=== PATIENT | female | born 1975 | race Two or more races ===

== ENCOUNTER 2022-05-01 09:55 | Emergency (ER) | payer BC, SELFPAY ==
--- NOTE | ~2022-05-01 | CT_ITS ---
EXAMINATION: CT ABDOMEN AND PELVIS WITH CONTRAST CLINICAL INFORMATION: Urinary retention. Question external compression. COMPARISON: None TECHNIQUE: Multidetector volumetric images were obtained from the superior aspect of the liver through the pubic symphysis following administration 85 mL of Omnipaque 350 intravenous contrast. Sagittal and coronal reformatted images were obtained on the technologist's workstation. Oral contrast: No This CT examination was performed using dose optimization techniques as appropriate, variously including the following: *Automated exposure control *Adjustment of mA and/or kV according to patient size (this includes techniques or standardized protocols for targeted exams where dose is matched to indication/reason for exam; i.e. extremities or head) *Use of iterative reconstruction technique DLP: 792 mGy-cm FINDINGS: LUNG BASES: There is minimal bibasilar compressive atelectasis or scarring. Heart size is normal. LIVER, GALLBLADDER, AND BILIARY TREE: The liver is normal in size, shape, and attenuation. There are several hypodense liver lesions largest right hepatic lobe is a cyst measuring 4.1 cm axial image 28/3 and a left hepatic cyst measuring 7.6 cm. no intrahepatic ductal dilatation seen. The gallbladder is moderately distended with no evidence of radiopaque gallstones, gallbladder wall thickening, or obvious pericholecystic inflammatory changes. PANCREAS: Unremarkable. SPLEEN: Unremarkable. ADRENAL GLANDS: Unremarkable. KIDNEYS AND URETERS: The kidneys are normal in size, shape, and attenuation. No radiopaque renal calculi or caliectasis seen. There is minimal left hydronephrosis slightly segment distal obstruction. No right-sided hydronephrosis seen. No perinephric stranding. BLADDER: The bladder is decompressed with a Warren's catheter. GASTROINTESTINAL TRACT: There is moderate scattered stool and gas seen throughout the colon without significant distention. The small bowel loops are normal caliber. ABDOMINAL WALL: A small umbilical hernia containing fat is noted. LYMPH NODES: Normal. VASCULAR: Unremarkable. PELVIC VISCERA: There is significantly enlarged lobulated uterus likely fibroid disease. Hypodense-appearing lesion in the left fundal uterus measuring 5.8 x 5.6 x 4.72 cm likely degenerated fibroid. There is a more solid lesion in the right body of uterus measuring 8.3 x 5.8 x 6.5 cm. The endometrial canal is compressed and deviated to the left from fibroid disease. There is minimal free fluid. No abnormal pelvic or inguinal lymph nodes seen. OSSEOUS STRUCTURES: No aggressive lytic or sclerotic process. CT/CT abdomen pelvis w con IMPRESSION: Lobulated enlarged uterus from a large hypodense likely degenerative fibroid in the left anterior fundus and a more solid lesion in the right body of uterus as described above. This is compressing on the bladder from posterior aspect. There is minimal free fluid in the cul-de-sac. There is a Warren's catheter in the bladder. Mild constipation. Multiple hepatic cysts largest in the left hepatic lobe. Mild enlarged gallbladder but no radiopaque calculi seen. Fleischner guidelines were followed.
[2022-05-01 10:03] VITALS: BP 201/99; PULSE 90; RESP 20; TEMP 37.2; O2SAT 98; BMI 32.5
[2022-05-01 10:38] LABS: Appearance Urine HAZY; Color Urine YELLOW; Glucose Urine UA NEG (NEG); Leukocyte Esterase Urine NEG (NEG); Nitrite Urine NEG (NEG); PH 7.5 (5.0-8.0); Specific Gravity - Urine <= 1.005 (1.005-1.025); UACC Culture Trigger NO; Urine Blood 2+ (NEG); Urine Ketones NEG (NEG); Urine Protein NEG (NEG-TRACE)
[2022-05-01 10:39] LABS: UPreg QC Valid YES; Urine Pregnancy NEGATIVE (NEGATIVE)
[2022-05-01 10:45] LABS: Mucus Urine 1+ /LPF; Squamous Epithelial Cell Urine 1+ /LPF; WBC Urine 0 /HPF (0-4)
[2022-05-01 10:49] VITALS: BP 187/86; PULSE 91; RESP 20; TEMP 37.2; O2SAT 98
--- NOTE | 2022-05-01 11:25 | ED.FEMALEGU ---
HPI - Female Genitourinary General Chief complaint: Urogenital-Female Stated complaint: cant urinate Time Seen by Provider: 05/01/22 10:29 Source: patient Mode of arrival: ambulatory History of Present Illness HPI Narrative: 46-year-old female without significant past medical history presents with noted difficulties in urinating that appear to come and go they have not been associated with any fever, chills, groin numbness, back injury, she denies any history of IVDA or MVC, denies any bilateral lower extremity numbness/tingling/weakness, denies any abdominal pain. Patient denies any prescription medications and only takes vitamins and minerals. On further questioning she does report that she is seeing a mud analysis well logging captain on Wednesday for vaginal prolapse. Related Data Allergies Allergy/AdvReac Type Severity Reaction Status Date / Time Penicillins Allergy Rash Verified 05/01/22 10:13 Review of Systems Review of Systems: Pertinent positives and negatives as stated in HPI 10 point review of systems otherwise negative. PMFSH Past Medical History Source: nursing notes reviewed Social History Social History Advance Directives: No Advance Directives Information Provided: No Physical Exam Vital Signs: Vital Signs: Last Vital Signs Temp 99.0 F 05/01/22 10:49 Pulse 74 05/01/22 12:46 Resp 16 05/01/22 12:46 BP 135/80 05/01/22 12:46 Pulse Ox 96 05/01/22 12:46 O2 Del Method 05/01/22 12:46 BMI result Body Mass Index 32.5 VITAL SIGNS: Reviewed. GENERAL: Well developed, well nourished,well-appearing, in no acute distress. HEAD: Normocephalic/atraumatic EYES: PERRLA, EOMI EARS: Ext canals without abnormality OROPHARYNX: no oral lesions noted, posterior pharynx clear NECK: Supple, no adenopathy LUNGS: Normal breath sounds. No adventitious sounds or accessory muscle use. SpO2<96> CARDIOVASCULAR: Regular rate and rhythm without noted murmurs ABDOMEN: Soft, non-tender, non-distended with bowel sounds, no CVA tenderness MUSCULOSKELETAL: No tenderness, deformities, or effusions noted on gross inspection. EXTREMITIES: No cyanosis, clubbing or edema. SKIN: Inspection of the skin reveals no rashes NEUROLOGIC: Alert and oriented x 4. Strength and sensation to light touch were grossly intact x 4, no saddle anesthesia, DTRs are intact, cranial nerves 2-12 grossly intact, no clonus. Course Course Course Narrative: 46-year-old female with history and clinical presentation consistent with overflow incontinence but does not appear to be secondary to infection, cauda equina, neurologic etiology nor is it secondary to medication etiology. Urinalysis is negative for infection and patient's history of vaginal prolapse is a possibility, but in an otherwise healthy and young person will pursue CT of abdomen pelvis, she appears to have follow-up for evaluation on this coming Wednesday with Dr. Vna in [facility]. On review of all investigations it appears that the uterus is quite lobulated and is compressing posteriorly on the bladder which may be contributing to patient's difficulty with urinary retention. Patient has a Warren catheter in place and understands that this must stay in place until she is evaluated by her mud analysis well logging captain on Wednesday. She is otherwise stable for discharge. MDM - Female Genitourinary Lab Data Result diagrams: 05/01/22 12:29 05/01/22 12:29 Labs: Lab Results 05/01/22 05/01/22 05/01/22 Range/Units 10:20 10:20 12:29 WBC 9.5 (4.8-10.8) X10*3/uL RBC 4.61 (4.20-5.50) X10*6/uL Hgb 13.5 (12.0-16.0) g/dl Hct 39.9 (37.0-47.0) % MCV 86.6 (80.0-98.0) fL MCH 29.3 (27.0-33.0) pg MCHC 33.8 (31.0-35.0) g/dl RDW 13.8 (11.0-16.0) % Plt Count 384 (160-400) X10*3/uL MPV 10.2 (9.4-12.3) fL Immature Gran % (Auto) 0.3 (0.0-0.4) % Neut % (Auto) 81.9 H (45-73) % Lymph % (Auto) 12.2 L (20-40) % Harper % (Auto) 5.0 (2-11) % Eos % (Auto) 0.2 (0-4) % Baso % (Auto) 0.4 (0-2) % Lymph # (Auto) 1.2 (1.2-4.9) X10*3/uL Harper # (Auto) 0.5 (0.1-1.2) X10*3/uL Eos # (Auto) 0.0 (0.0-0.4) X10*3/uL Baso # (Auto) 0.0 (0.0-0.2) X10*3/uL Abs Immat Gran (auto) 0.03 (0.00-0.03) X10*3/uL Absolute Neuts (auto) 7.8 (2.0-8.3) x10*3/uL Absolute Nucleated RBC 0.000 (0.0-0.012) X10*3/uL Nucleated RBC % (auto) 0.0 (0.0-0.2) /100WBC Sodium (135-145) mmol/L Potassium (3.3-5.1) mmol/L Chloride (96-108) mmol/L Carbon Dioxide (22-29) mmol/L Anion Gap (12-20) BUN (9-16) mg/dL Creatinine (0.5-1.4) mg/dL Estim Creat Clear Calc Estimated GFR Random Glucose (60-115) mg/dL Calcium (8.4-10.2) mg/dL Total Bilirubin (0.0-1.0) mg/dL AST (5-31) U/L ALT (0-31) U/L Alkaline Phosphatase (39-117) U/L Total Protein (6.5-8.0) g/dL Albumin (3.5-5.0) g/dL Urine Color YELLOW Urine Appearance HAZY Urine pH 7.5 (5.0-8.0) Ur Specific [place] <= 1.005 (1.005-1.025) Urine Protein NEG (NEG-TRACE) MG/DL Urine Glucose (UA) NEG (NEG) MG/DL Urine Ketones NEG (NEG) MG/DL Urine Blood 2+ H (NEG) Urine Nitrite NEG (NEG) Ur Leukocyte Esterase NEG (NEG) Urine RBC 1-4 (0) /HPF Urine WBC 0 (0-4) /HPF Ur Squamous Epith Cells 1+ /LPF Urine Bacteria NONE /LPF Urine Mucus 1+ /LPF Urine Test NEGATIVE (NEGATIVE) 05/01/22 Range/Units 12:29 WBC (4.8-10.8) X10*3/uL RBC (4.20-5.50) X10*6/uL Hgb (12.0-16.0) g/dl Hct (37.0-47.0) % MCV (80.0-98.0) fL MCH (27.0-33.0) pg MCHC (31.0-35.0) g/dl RDW (11.0-16.0) % Plt Count (160-400) X10*3/uL MPV (9.4-12.3) fL Immature Gran % (Auto) (0.0-0.4) % Neut % (Auto) (45-73) % Lymph % (Auto) (20-40) % Harper % (Auto) (2-11) % Eos % (Auto) (0-4) % Baso % (Auto) (0-2) % Lymph # (Auto) (1.2-4.9) X10*3/uL Harper # (Auto) (0.1-1.2) X10*3/uL Eos # (Auto) (0.0-0.4) X10*3/uL Baso # (Auto) (0.0-0.2) X10*3/uL Abs Immat Gran (auto) (0.00-0.03) X10*3/uL Absolute Neuts (auto) (2.0-8.3) x10*3/uL Absolute Nucleated RBC (0.0-0.012) X10*3/uL Nucleated RBC % (auto) (0.0-0.2) /100WBC Sodium 139 (135-145) mmol/L Potassium 3.8 (3.3-5.1) mmol/L Chloride 106 (96-108) mmol/L Carbon Dioxide 23 (22-29) mmol/L Anion Gap 14 (12-20) BUN 13 (9-16) mg/dL Creatinine 0.75 (0.5-1.4) mg/dL Estim Creat Clear Calc 97.4 Estimated GFR > 60 Random Glucose 103 (60-115) mg/dL Calcium 8.6 (8.4-10.2) mg/dL Total Bilirubin 0.3 (0.0-1.0) mg/dL AST 26 (5-31) U/L ALT 19 (0-31) U/L Alkaline Phosphatase 74 (39-117) U/L Total Protein 7.6 (6.5-8.0) g/dL Albumin 4.3 (3.5-5.0) g/dL Urine Color Urine Appearance Urine pH (5.0-8.0) Ur Specific [place] (1.005-1.025) Urine Protein (NEG-TRACE) MG/DL Urine Glucose (UA) (NEG) MG/DL Urine Ketones (NEG) MG/DL Urine Blood (NEG) Urine Nitrite (NEG) Ur Leukocyte Esterase (NEG) Urine RBC (0) /HPF Urine WBC (0-4) /HPF Ur Squamous Epith Cells /LPF Urine Bacteria /LPF Urine Mucus /LPF Urine Test (NEGATIVE) Discharge Plan Discharge Clinical Impression: Urinary retention, Uterine fibroid Patient Disposition: Home, Self-Care Instructions: Warren Catheter Placement and Care (ED), Acute Urinary Retention in Women (ED) Additional Instructions: 1. Keep your follow-up appointment with your mud analysis well logging captain on Wednesday. You have fibroids of the uterus which may be compressing your bladder. 2. You can wear this leg bag connected to Warren catheter and simply empty a through the provided opening. Return to the ER for worsening symptoms. Stand Alone Forms: Work/School Release
[2022-05-01 11:31] VITALS: BP 150/75; PULSE 85; RESP 18; O2SAT 100
[2022-05-01 12:46] VITALS: BP 135/80; PULSE 74; RESP 16; O2SAT 96
[2022-05-01 12:48] LABS: MANUAL DIFF FLAG NO
[2022-05-01 12:54] LABS: Basophils Percent Auto 0.4 % (0-2); Eosinophils Percent Auto 0.2 % (0-4); Hematocrit 39.9 % (37.0-47.0); Hemoglobin 13.5 g/dl (12.0-16.0); Imm Gran Abs Auto 0.03 X10*3/uL (0.00-0.03); Imm Gran Pct Auto 0.3 % (0.0-0.4); Lymphocytes Absolute Auto 1.2 X10*3/uL (1.2-4.9); Lymphocytes Percent Auto 12.2 % (20-40); Mean Corpuscular HGB Conc 33.8 g/dl (31.0-35.0); Mean Corpuscular Hemoglobin 29.3 pg (27.0-33.0); Mean Corpuscular Volume 86.6 fL (80.0-98.0); Mean Platelet Volume 10.2 fL (9.4-12.3); Monocytes Absolute Auto 0.5 X10*3/uL (0.1-1.2); Neutrophils Absolute Auto 7.8 x10*3/uL (2.0-8.3); Neutrophils Percent Auto 81.9 % (45-73); Platelet Count 384 X10*3/uL (160-400); Red Blood Count 4.61 X10*6/uL (4.20-5.50); Red Cell Distribution Width 13.8 % (11.0-16.0); White Blood Count 9.5 X10*3/uL (4.8-10.8)
[2022-05-01 13:09] LABS: Alanine Aminotransferase 19 U/L (0-31); Albumin Level 4.3 g/dL (3.5-5.0); Alkaline Phosphatase 74 U/L (39-117); Anion Gap 14 (12-20); Aspartate Amino Transferase 26 U/L (5-31); Bilirubin Total 0.3 mg/dL (0.0-1.0); Blood Urea Nitrogen 13 mg/dL (9-16); Calcium 8.6 mg/dL (8.4-10.2); Carbon Dioxide 23 mmol/L (22-29); Chloride 106 mmol/L (96-108); Creatinine Clr Calc Pharmacy 97.4; Estimated Glomerular Filt Rate > 60; Glucose Random 103 mg/dL (60-115); Potassium 3.8 mmol/L (3.3-5.1); Sodium 139 mmol/L (135-145); Total Protein 7.6 g/dL (6.5-8.0)
[2022-05-01] MEDS: iohexoL 350 MG/ML 100 ML INFUS..BTL IV (14:13)
[2022-05-01 15:32] VITALS: BP 155/78; PULSE 93; RESP 18; O2SAT 97
--- NOTE | 2022-05-01 15:43 | PC.NURSE ---
RN and patient discussed use of leg bag and yeboah extensively. RN changed yeboah to leg bag prior to patient DC and sent patient home with extra supplies.
== END 2022-05-01 15:55 | disposition home or self-care (01) ==
PROVIDERS: Emergency Provider Student in an Organized Health Care Education/Training Program
DX: R33.9 Retention of urine, unspecified (principal); D25.9 Leiomyoma of uterus, unspecified
CPT/HCPCS: 36415; 51702; 51798; 74177; 80053; 81001; 81025; 85025; 99284; 99285; Q9967